=== PATIENT | female | born 1970 | race Caucasian/White ===

== ENCOUNTER 2017-02-01 07:57 | Emergency (ER) | payer OTHER ==
[~2017-02-01] VITALS: Ht 162.6 cm; Wt 63.0 kg
[2017-02-01] MEDS ORDERED: LORAZEPAM 1MG TABLET PO ONE (10:15)
[2017-02-01 10:39] LABS: BG CARBOXYHEMOGLOBIN 0.4 % (0.5-1.5); BG DEOXYHEMOGLOBIN 2.7 % (0.0-5.0); BG FRACTION INSPIRED OXYGEN 21; BG HCO3 ACT 22.2 mmol/L (22.0-26.0); BG METHEMOGLOBIN 0.3 % (0.0-1.5); BG OXYGEN SATURATION 97.3 % (92.0-98.5); BG OXYHEMOGLOBIN 96.6 % (94.0-97.0); BG PCO2 36.3 mmHg (35.0-45.0); BG PH 7.405 (7.350-7.450); BG PO2 95.1 mmHg (75.0-100.0); BG SAMPLE SITE RIGHT RADIAL; BG TOTAL HEMOGLOBIN 13.5 g/dL (12.0-18.0); BG VENT MODE ROOM AIR
[2017-02-01 10:42] LABS: EOSINOPHILS % 0.3 % (0.0-5.0); HEMATOCRIT. 40.4 % (36.0-48.0); HEMOGLOBIN. 13.4 g/dL (12.0-16.0); LYMPHOCYTES % 26.5 % (20.0-50.0); MEAN CORPUSCULAR HGB CONC 33.1 g/dL (31.0-37.0); MEAN CORPUSCULAR VOLUME 87.5 fL (81.0-99.0); MEAN PLATELET VOLUME 8.1 fl (7.4-10.4); MONOCYTES % 11.9 % (2.0-8.0); NEUTROPHILS % 60.3 % (40.0-76.0); PLATELET 251 x1000/uL (130-400); RED BLOOD CELL COUNT 4.62 mill/uL (4.2-5.4); RED CELL DISTRIBUTION WIDTH 13.7 % (11.6-14.6); WHITE BLOOD COUNT 5.2 x1000/uL (4.5-11.0)
[2017-02-01 10:51] LABS: ALBUMIN 4.2 g/dL (3.4-5.0); ANION GAP 11; CALCIUM 8.9 mg/dL (8.5-10.1); CARBON DIOXIDE 29 mEq/L (21-32); CHLORIDE 104 mEq/L (98-107); INDEX HEMOLYSI 1 (1-3); INDEX ICTERIC 1 (1-4); INDEX LIPEMIC 1 (1-3); UREA NITROGEN BLOOD 10 mg/dL (7-21)
[2017-02-01 10:59] LABS: ALANINE AMINOTRANSFERASE 18 IU/L (13-61); TROPONIN I < 0.02 ng/mL (0.00-0.04); eGFR > 60 mL/min (>60)
[2017-02-01 11:56] VITALS: BP 108/74
== END 2017-02-01 12:00 | disposition home or self-care (01) ==
LOC: ER 08:41
DX: R06.02 Shortness of breath (principal); F41.9 Anxiety disorder, unspecified
CPT/HCPCS: 36415; 36600; 71010; 80053; 81025; 82375; 82805; 84484; 85025; 93005; 99285; Z7610